=== PATIENT | female | born 1965 | race Caucasian/White ===

== ENCOUNTER 2020-11-30 08:06 | Emergency (ER) | payer OTHER ==
[2020-11-30] MEDS ORDERED: Sodium Chloride 0.9% 10 ML Syringe FLUSH PRN (08:53)
[2020-11-30] MEDS ORDERED: Sodium Chloride 0.9% 2.5 ML Syringe FLUSH PRN (08:53)
[2020-11-30] MEDS ORDERED: Sodium Chloride 0.9% 1,000 ML IV ONE (08:54)
[2020-11-30] MEDS ORDERED: Ketorolac 30 MG/ML SDV IVPUSH ONE (09:12)
--- NOTE | 2020-11-30 09:14 | EDM.PDOC ---
ED HPI GENERAL MEDICAL PROBLEM - General Chief Complaint: Fever Stated Complaint: COVID SYMPTOMS Time Seen by Provider: 11/30/20 09:02 - History of Present Illness INITIAL COMMENTS - FREE TEXT/NARRATIVE: History of present illness: Feels sick since 23 November 2020. She has body aches fever. She has a cough. She is not short of breath. Her oxygen level is good. She is not vomiting. She feels dehydrated and weak but she has normal urine and bowel output. The patient has a history of diabetes and her BMI is 31.6. She was not vaccinated for COVID-19 and is willing to take monoclonal antibodies if available. This patient was seen and evaluated during the 2019 SARS-CoV-2 novel coronavirus pandemic period. Community viral transmission is ongoing at time of this encounter and the emergency department is operating under pandemic response procedures. [] Review of systems: As per history of present illness and below otherwise all systems reviewed and negative. Past medical history: As per history of present illness and as reviewed below otherwise noncontributory. Surgical history: As per history of present illness and as reviewed below otherwise noncontributory. Social history: No reported history of drug or alcohol abuse. Family history: As per history of present illness and as reviewed below otherwise noncontributory. Physical exam: Constitutional - well developed, well-nourished and in no acute distress HEENT - normocephalic, no evidence of trauma - external nose and mouth normal - no mass in neck and no JVD - mucosae moist EYES - full EOM, PERRL, no icterus - no evidence of inflammation, injection, or drainage Respiratory - no respiratory distress, equal bilateral expansion, lungs clear to auscultation and no abnormal lung sounds Cardiovascular - Regular Rhythm with S1 and S2 appreciated and no murmur, gallop or rub. GI - abdomen soft without distension or organomegaly - normal bowel sounds - no guard or rebound Musculoskeletal no gross deformity of long bones or joints - no tenderness, swelling or edema Neurologic - Alert and oriented times four - CN II-XII grossly intact - motor sensory and coordination symmetrically normal Psychiatric - appropriate mood and affect with normal thought content Hematologic - No petechiae or purpura - mucosa appropriate color and sclera not pale - normal nail bed color and refill Integument - no rash or evidence of trauma - normal turgor Diagnostics: [] Therapeutics: [] Impression: [] Plan: [] Definitive disposition and diagnosis as appropriate pending reevaluation and review of above. - Related Data Allergies Allergy/AdvReac Type Severity Reaction Status Date / Time Bandaid Allergy Mild Rash Uncoded 11/30/20 08:27 Home Meds: Home Meds Insulin Aspart [NovoLOG] 1 injection SUBCUT ASDIRECTED 02/26/14 [History] Insulin Glarg,Human.Rec.Analog [Lantus] 30 units SUBCUT ASDIRECTED 02/26/14 [History] Lisinopril 5 mg PO DAILY 02/26/14 [History] Kelso-3/DHA/Epa/Fish Oil [Fish Oil 1,000 mg Softgel] 1,000 mg PO DAILY 02/26/14 [History] PARoxetine [Paxil] 20 mg PO DAILY 02/26/14 [History] SitaGLIPtin [Januvia] 100 mg PO DAILY 02/26/14 [History] Insulin Glargine,Hum.Rec.Anlog [Toujeo Max Solostar] 104 units SUBCNJ DAILY 11/30/20 [History] atorvaSTATin [Lipitor] 20 mg PO DAILY 11/30/20 [History] metFORMIN [Glucophage XR] 500 mg PO BID 11/30/20 [History] Past Medical History Cardiovascular History: Reports: High Cholesterol, Hypertension Endocrine/Metabolic History: Reports: Diabetes, Type II - Infectious Disease History Infectious Disease History: Reports: Novel Coronavirus - Past Surgical History Musculoskeletal Surgical History: Reports: Other (See Below) Other Musculoskeletal Surgeries/Procedures:: left wrist- cyst removed Social & Family History - Family History Family Medical History: No Pertinent Family History - Tobacco Use Tobacco Use Status *Q: Never Tobacco User - Caffeine Use Caffeine Use: Reports: Coffee ED ROS GENERAL - Review of Systems Review Of Systems: Comprehensive ROS is negative, except as noted in HPI. ED EXAM, GENERAL - Physical Exam Exam: See Below Free Text/Narrative:: My physical exam is in the HPI Course - Vital Signs Last Recorded V/S: Last Vital Signs Temp 37.7 C 11/30/20 09:12 Pulse 91 11/30/20 09:12 Resp 16 11/30/20 09:12 BP 141/90 H 11/30/20 09:12 Pulse Ox 96 11/30/20 09:12 - Orders/Labs/Meds Orders: Active Orders 24 hr Category Date Time Status Sodium Chloride 0.9% [Saline Flush] Med 11/30/20 08:53 Active 10 ml FLUSH ASDIRECTED PRN Sodium Chloride 0.9% [Saline Flush] Med 11/30/20 08:53 Active 2.5 ml FLUSH ASDIRECTED PRN Saline Lock Insert [OM.PC] Stat Oth 11/30/20 08:53 Ordered Medication Orders Sodium Chloride (Sodium Chloride 0.9% 10 Ml Syringe) 10 ml FLUSH ASDIRECTED PRN PRN Reason: Keep Vein Open Sodium Chloride (Sodium Chloride 0.9% 2.5 Ml Syringe) 2.5 ml FLUSH ASDIRECTED PRN PRN Reason: Keep Vein Open Labs: Laboratory Tests 11/30/20 11/30/20 Range/Units 08:50 09:06 WBC 6.40 (4.0-11.0) K/uL RBC 4.81 (4.30-5.90) M/uL Hgb 14.9 (12.0-16.0) g/dL Hct 42.0 (36.0-46.0) % MCV 87.3 (80.0-98.0) fL MCH 31.0 (27.0-32.0) pg MCHC 35.5 (31.0-37.0) g/dL RDW Std Deviation 44.2 (28.0-62.0) fl RDW Coeff of Papo 14 (11.0-15.0) % Plt Count 226 (150-400) K/uL MPV 9.70 (7.40-12.00) fL Neut % (Auto) 76.3 (48.0-80.0) % Lymph % (Auto) 18.9 (16.0-40.0) % Saline % (Auto) 4.5 (0.0-15.0) % Eos % (Auto) 0.0 (0.0-7.0) % Baso % (Auto) 0.3 (0.0-1.5) % Neut # (Auto) 4.9 (1.4-5.7) K/uL Lymph # (Auto) 1.2 (0.6-2.4) K/uL Saline # (Auto) 0.3 (0.0-0.8) K/uL Eos # (Auto) 0.0 (0.0-0.7) K/uL Baso # (Auto) 0.0 (0.0-0.1) K/uL Nucleated RBC % 0.0 /100WBC Nucleated RBCs # 0 K/uL Sodium 134 L (136-145) mmol/L Potassium 4.0 (3.5-5.1) mmol/L Chloride 97 L (98-107) mmol/L Carbon Dioxide 22.1 (21.0-32.0) mmol/L BUN 16 (7.0-18.0) mg/dL Creatinine 0.9 (0.6-1.0) mg/dL Est Cr Clr Drug Dosing 63.14 mL/min Estimated GFR (MDRD) > 60.0 ml/min Glucose 196 H (74-106) mg/dL Calcium 8.0 L (8.5-10.1) mg/dL Total Bilirubin 0.6 (0.2-1.0) mg/dL AST 55 H (15-37) IU/L ALT 51 (14-63) IU/L Alkaline Phosphatase 73 (46-116) U/L Total Protein 7.3 (6.4-8.2) g/dL Albumin 3.3 L (3.4-5.0) g/dL Globulin 4.0 (2.6-4.0) g/dL Albumin/Globulin Ratio 0.8 L (0.9-1.6) Meds: Medications Generic Name Dose Route Start Last Admin Trade Name Freq PRN Reason Stop Dose Admin Sodium Chloride 10 ml 11/30/20 08:53 Sodium Chloride 0.9% 10 Ml Syringe FLUSH ASDIRECTED PRN Keep Vein Open Sodium Chloride 2.5 ml 11/30/20 08:53 Sodium Chloride 0.9% 2.5 Ml Syringe FLUSH ASDIRECTED PRN Keep Vein Open Discontinued Medications Generic Name Dose Route Start Last Admin Trade Name Freq PRN Reason Stop Dose Admin Sodium Chloride 1,000 mls @ 1,000 mls/hr 11/30/20 08:54 11/30/20 09:08 Normal Saline IV 11/30/20 09:53 1,000 mls/hr .Bolus ONE Administration Ketorolac Tromethamine 15 mg 11/30/20 09:12 11/30/20 09:21 Ketorolac 30 Mg/Ml Sdv IVPUSH 11/30/20 09:13 15 mg ONETIME ONE Administration Departure - Departure Time of Disposition: 10:28 Disposition: Home, Self-Care 01 Condition: Good Clinical Impression: COVID-19, Fatigue, Body aches - Discharge Information Instructions: COVID-19 Vaccine Information, COVID-19 Frequently Asked Questions, 10 Things You Can Do to Manage Your COVID-19 Symptoms at Home - [facility] (09/06/2020), COVID-19: Quarantine vs. Isolation - [facility] (02/08/2020) Referrals: PCP,None [Primary Care Provider] - Forms: ED Department Discharge Additional Instructions: We are trying to arrange outpatient antibodies. They must be given Wednesday or Wednesday because after 10 days are no longer a candidate. Is [id number] medicines for symptoms. Drink plenty fluids [facility] [address] [place] [address] [place] [address] The following information is given to patients seen in the emergency department who are being discharged to home. This information is to outline your options for follow-up care. We provide all patients seen in our emergency department with a follow-up referral. The need for follow-up, as well as the timing and circumstances, are variable depending upon the specifics of your emergency department visit. If you don't have a primary care physician on staff, we will provide you with a referral. We always advise you to contact your personal physician following an emergency department visit to inform them of the circumstance of the visit and for follow-up with them and/or the need for any referrals to a consulting specialist. The emergency department will also refer you to a specialist when appropriate. This referral assures that you have the opportunity for follow-up care with a specialist. All of these measure are taken in an effort to provide you with optimal care, which includes your follow-up. Under all circumstances we always encourage you to contact your private physician who remains a resource for coordinating your care. When calling for follow-up care, please make the office aware that this follow-up is from your recent emergency room visit. If for any reason you are refused follow-up, please contact the [facility] Emergency Department at and asked to speak to the emergency department charge nurse. Sepsis Event Note (ED) - Evaluation Sepsis Screening Result: No Definite Risk - Focused Exam Vital Signs: Vital Signs Temp Pulse Resp BP Pulse Ox 11/30/20 09:12 37.7 C 91 16 141/90 H 96 11/30/20 08:31 38.1 C 106 H 18 157/98 H 93 L - My Orders Last 24 Hours: My Active Orders 11/30/20 08:53 Sodium Chloride 0.9% [Saline Flush] 10 ml FLUSH ASDIRECTED PRN Sodium Chloride 0.9% [Saline Flush] 2.5 ml FLUSH ASDIRECTED PRN Saline Lock Insert [OM.PC] Stat - Assessment/Plan Last 24 Hours: My Active Orders 11/30/20 08:53 Sodium Chloride 0.9% [Saline Flush] 10 ml FLUSH ASDIRECTED PRN Sodium Chloride 0.9% [Saline Flush] 2.5 ml FLUSH ASDIRECTED PRN Saline Lock Insert [OM.PC] Stat
[2020-11-30 09:45] LABS: BLOOD UREA NITROGEN,BUN 16 mg/dL (7.0-18.0); CARBON DIOXIDE,CO2 22.1 mmol/L (21.0-32.0); CHLORIDE,CL 97 mmol/L (98-107); GLUCOSE RANDOM 196 mg/dL (74-106); SODIUM,NA 134 mmol/L (136-145)
--- NOTE | 2020-11-30 10:23 | CR ---
INDICATION: Cough TECHNIQUE: Single view chest. FINDINGS: The lungs are clear. The heart, mediastinum and pulmonary vessels are of normal size. There is no evidence of pleural disease. IMPRESSION: Negative chest. Dictated by Lois Laguna MD @ 11/30/2020 10:22:03 AM (Electronically Signed)
[2020-11-30 19:37] VITALS: BP 110/67; PULSE 83
== END 2020-11-30 11:08 | disposition home or self-care (01) ==
LOC: MW.ED 08:06
DX: U07.1 COVID-19 (principal); E78.00 Pure hypercholesterolemia, unspecified; I10 Essential (primary) hypertension; E11.9 Type 2 diabetes mellitus without complications; E66.9 Obesity, unspecified; Z68.31 Body mass index [BMI] 31.0-31.9, adult; Z91.048 Other nonmedicinal substance allergy status; Z79.4 Long term (current) use of insulin; Z79.899 Other long term (current) drug therapy
CPT/HCPCS: 36415; 71045; 80053; 85025; 96374; 99283; J1885; J7030